=== PATIENT | male | born 1975 | race Caucasian/White ===

== ENCOUNTER 2016-09-06 03:34 | Inpatient (IN) | payer OTHER ==
[2016-09-06] VITALS (38 sets, daily range): BP systolic 116–163; BP diastolic 59–104
[~2016-09-06] VITALS: Ht 177.8 cm; Wt 81.6 kg
--- NOTE | ~2016-09-06 | P ---
[facility] [place] [address] PROCEDURE REPORT Name: LOIS SHERIDAN Room #: 241-P [facility] IN .Bryce#: [id number] Admission: 09/06/16 Attend Phys: Eulalio Amaya MD Discharge: 09/08/16 Date of : 73 Report #: [id number] THIS REPORT FOR: //name// CC: NILESH physician/PCP Eulalio Amaya DATE OF SERVICE: 09/08/2016 UPPER ENDOSCOPY REPORT BRIEF HISTORY: The patient is a 41-year-old male with alcohol abuse, nausea, vomiting, hematemesis, epigastric pain and odynophagia. PREOPERATIVE DIAGNOSIS: Upper gastrointestinal bleed. POSTOPERATIVE DIAGNOSES: 1. Severe, grade D esophagitis. 2. Antral gastritis, erythematous, moderate. 3. Patchy bulboduodenitis without ulceration. MEDICATIONS: Deep sedation with propofol per anesthesia. SPECIMEN: Biopsies of gastritis. ESTIMATED BLOOD LOSS: 3 mL. PROCEDURE: EGD with biopsy. FINDINGS: Prior to propofol sedation, procedure of upper endoscopy discussed with the patient, all potential risks and its complications. She indicates she understands and desires to proceed. DESCRIPTION OF PROCEDURE: With the patient in left lateral decubitus position, the Fuji video endoscope was inserted in the cervical esophagus under direct vision without difficulty. Examination of this organ through its entire length revealed normal esophageal mucosa in the proximal esophagus; however, in the mid and distal esophagus there was severe grade D erosive esophagitis, blood or bleeding was not seen. The patient has history of alcohol abuse, but varices were not seen today. A hiatus hernia was not seen. No strictures or masses were seen. He has had vomiting and there is esophagitis, but I do not see an obvious may be present and not visible due to the esophagitis. Scope was advanced in the stomach, which was examined on end view as well as retroflexed views. There was patchy erythema to moderate degree in the antrum, however the mucosa was intact. No ulcers or erosions were seen. Upon retroflexion, no mass lesions were seen. Biopsies obtained of the gastritis. The pylorus, duodenal bulb and postbulbar sweep were inspected. There was moderate patchy duodenitis [facility] [address] [place] [address] PROCEDURE REPORT Name: TERESA SHERIDANN [place] Room #: 241-P [facility] IN [facility].#: [id number] Admission: 09/06/16 Attend Phys: Eulalio Amaya MD Discharge: 09/08/16 Date of : 73 Report #: [id number] with mostly erythema, but no ulcers or erosions were seen and the duodenal mucosa was intact. The duodenal sweep down the third portion was normal. At that point, the scope was slowly withdrawn and careful circumferential views confirmed the above findings. The patient tolerated the procedure well. DISPOSITION: The patient with hematemesis, odynophagia and epigastric pain. His pain symptoms were likely related to esophagitis. An ultrasound of the abdomen earlier today, report is not yet available. We will follow up on biopsies. Place the patient on proton pump inhibitor and Carafate suspension. He should have a repeat endoscopy in about 8 weeks to confirm healing and to make sure he does not develop Masterson's with severe esophagitis. In addition, cessation of alcohol is absolutely for this patient. Again, no varices seen. <ELECTRONICALLY SIGNED> By: Goyo Alvarez MD 09/10/16 1225 [id number] [id number] Goyo Alvarez MD /nt
--- NOTE | ~2016-09-06 | S ---
[facility] [place] [address] SURGICAL PATH RPT PROCEDURE Name: LOIS SHERIDAN Room #: 241-P [facility] IN M.R.#: [id number] Admission: 09/06/16 Date of : 73 Discharge: 09/08/16 Report #: [id number] Path Case #: [id number] PATHOLOGY REPORT COLLECTION DATE: 09/08/2016 RECEIVED DATE: 09/08/2016 SUBMITTING PHYS: Dr. Goyo Alvarez OTHER PHYS: Dr. Eulalio Amaya SPECIMEN(S) RECEIVED: A.Gastric bx * * * * * * * * * * * * FINAL DIAGNOSIS: "Gastric bx", biopsy: - Gastric mucosa with reactive/regenerative changes, mild chronic inflammation and focal necroinflammatory debris consistent with ulcer/erosion; no dysplasia seen. - Negative H. pylori immunohistochemical stain (block A1); control reacted appropriately. (CLW:all; d/t: 09/09/2016) PATHOLOGIST: Meera Franklin M.D. REPORT ELECTRONICALLY SIGNED BY: Meera Franklin M.D. DATE/TIME: 09/09/2016 16:34 * * * * * * * * * * * * GROSS PATHOLOGY: Received in formalin labeled "Lois Sheridan and gastric," are 3 segments of carr soft tissue measuring 1.0 x 0.2 x 0.2 cm in aggregate dimensions and ranging from 0.2 to 0.5 cm in maximum dimension. The specimen is submitted entirely in cassette A1. (TTL; 09/08/2016) CLINICAL HISTORY: Gastritis INITIAL CPT CODE(S): A; 85962, 25350 Professional services performed by [facility] at [facility] [address], [place] [address] Technical services performed by [facility] at [address] [place] [id number]. [facility] [address] [place] [address] SURGICAL PATH RPT PROCEDURE Name: LOIS SHERIDAN Room #: 241-P [facility] IN M.R.#: [id number] Admission: 09/06/16 Date of : 73 Discharge: 09/08/16 Report #: [id number] Path Case #: [id number] [facility] [address] [address] PHONE: [phone] DIRECTOR: Cristhian Robles M.D. * * * END OF REPORT * * *
--- NOTE | ~2016-09-06 | HC ---
[facility] [place] [address] CONSULTATION Name: LOIS SHERIDAN Room #: 241-P [facility] IN [place]#: [id number] Admission: 09/06/16 Attend Phys: Eulalio Amaya MD Discharge: 09/08/16 Date of : 73 Report #: [id number] THIS REPORT FOR: //name// CC: NILESH physician/PCP Eulalio Amaya DATE OF SERVICE: 09/06/2016 HISTORY OF PRESENT ILLNESS: This is a 41-year-old male who admitted to the hospital. He is known to be a severe alcoholic. He has been having a long-standing history of severe abuse. We had seen him in the past 2 years ago and unfortunately he is not having significant sobriety to speak of. He has had best several months here and there. His family is very concerned about him. The patient tends to minimize what he needs. The patient states he needs outpatient rehab, though he just left from inpatient rehab 45 days ago. The patient was diagnosed with bipolar type 2 history. He says his mood is fine at this point. Anxiety is all right. He denies any suicidal or homicidal ideation or delusions. His demeanor has been pleasant and calm in the hospital, wants to get detoxed, he apparently was trying to self-detox at home. PAST PSYCHIATRIC HISTORY: Bipolar disorder as well as of course history of alcohol dependence. PAST MEDICAL HISTORY: Hypertension and GERD. LABORATORY DATA: Laboratories reviewed. He has a little potassium. Alcohol 252. On admission, hemoglobin 18.2 and platelets 147,000. FAMILY PSYCHIATRIC HISTORY: The patient denies. SOCIAL HISTORY: The patient again has had difficulty struggling with functioning due to his severe alcoholism. Family said he has had numerous attempts at detox that are failed. Denies substance abuse. MENTAL STATUS EXAMINATION: The patient has a flushed appearance. His affect is normal in appearance. He is not agitated. He has only a mild tremor. Thought process linear. Thought content, no suicidal or homicidal ideations. No delusions or thought disturbances. Insight and judgment are fair. IMPRESSION: AXIS I: 1. Bipolar type 2 disorder. 2. Alcohol dependence. AXIS II: Deferred. [facility] [address] [place] [address] CONSULTATION Name: TERESA SHERIDANN [place] Room #: 241-P [facility] IN [facility]#: [id number] Admission: 09/06/16 Attend Phys: Eulalio Amaya MD Discharge: 09/08/16 Date of : 73 Report #: [id number] AXIS III: As above. AXIS IV: Moderate. AXIS V: Global assessment of functioning currently 50%. PLAN: I had completed the detox as you are doing. We will start low dose Lamictal and resume the low dose Neurontin. I would not resume his old home dose of Lamictal and I would hold off on naltrexone, which he said he was also warned until his own physician resumes the naltrexone. I also would not resume Xanax or Ativan and not give him any prescriptions for these on discharge. I do not believe he can manage those. He can be discharged once he is completely detoxed. Hopefully, case management can get him into inpatient rehab at [facility]. He has a very positive outlook toward that place, but right now, he is saying he will do more outpatient. He really probably would benefit more from an inpatient setting. This was our recommendation. Thank you for the consultation. <ELECTRONICALLY SIGNED> By: Alverto Thorpe MD 09/09/16 [id number] Eloy Kimble MD /nt
[~2016-09-06 03:34] MED LIST: ALEVE220 M1 PO; ALPRAZOLAM1 MG PO; ATENOLOL 50 MG50 M1 PO; ATIVAN1 MG PO; BUSPAR 5 MG TABL5 M1 PO; CLONIDINE HCL0.2 M2 PO; CLONIDINE0.1 PO; FAMOTIDINE40 MG PO; LAMICTAL100 MG PO; LORAZEPAM 1 MG T1 M1 PO; MUCINEX600 MG PO; MULTI-VITAMIN1 EAC5 PO; ONDANSETRON HCL4 M2 PO; PEPCID20 MG PO; PHENERGAN 25 MG25 M1 PO; POTASSIUM20 PO; PRENATAL MULTI1 EAC2 PO; TENORMIN50 MG PO; TRAZODONE 150150 M1 PO; TRAZODONE HCL100 MG PO; WELLBUTRIN 100100 MG PO; ZYPREXA 5 MG TAB5 M2 PO
[2016-09-06 04:08] LABS: HEMATOCRIT 54.7 % (42.0-52.0); HEMOGLOBIN 18.2 gm/dL (14.0-18.0); MCH 29.2 pg (26.0-34.0); MCHC 33.2 % (28.0-37.0); MCV 87.8 fL (80.0-100.0); PLATELET COUNT 147 thou/uL (150-400); RBC 6.23 mil/uL (4.50-6.00); RDW 13.7 % (10.5-14.5); WBC 20.6 thou/uL (4.0-11.0)
[2016-09-06 04:09] LABS: MANUAL DIFF YES
[2016-09-06 04:20] LABS: CREATININE 1.2 mg/dL (0.6-1.3); MAGNESIUM 1.3 mg/dL (1.8-2.4); POTASSIUM 3.1 mmol/L (3.5-5.1)
[2016-09-06 04:34] LABS: ABSOLUTE NEUTROPHILS 16.3 thou/uL (1.4-8.2); ATYPICAL LYMPHS 1 %; TOTAL CELL COUNT 100
[2016-09-06 12:46] LABS: INR 1.1; MAGNESIUM 2.1 mg/dL (1.8-2.4); PROTIME 11.5 Seconds (9.3-11.4)
[2016-09-06] MEDS ORDERED: LAMICTAL100 MG PO (12:46)
[2016-09-06] MEDS ORDERED: NEURONTIN 300300 M1 PO (12:46)
[2016-09-06 12:50] LABS: POTASSIUM 2.9 mmol/L (3.5-5.1)
[2016-09-06 12:52] LABS: PHOSPHORUS 2.1 mg/dL (2.5-4.9)
[2016-09-06] MEDS ORDERED: REVIA 50 MG TAB50 M1 PO (13:05)
[2016-09-06] MEDS ORDERED: TRAZODONE HCL100 MG PO (13:29)
[2016-09-06] MEDS ORDERED: LAMICTAL200 MG PO (13:31)
[2016-09-06] MEDS ORDERED: GABAPENTIN 100100 MG PO (13:31)
[2016-09-06] MEDS ORDERED: NALTREXONE HCL50 MG PO (13:32)
[2016-09-06] MEDS ORDERED: ZOLOFT100 MG PO (13:33)
[2016-09-06] MEDS ORDERED: HYDROXYZINE HCL25 M2 PO (13:36)
[2016-09-06 17:50] LABS: URINE BILIRUBIN NEGATIVE (Negative); URINE BLOOD NEGATIVE (Negative); URINE COLOR YELLOW; URINE GLUCOSE-RANDOM* NEGATIVE (Negative); URINE KETONES NEGATIVE (Negative); URINE LEUKOCYTES-REFLEX NEGATIVE (Negative); URINE PROTEIN (DIPSTICK) TRACE (Negative); URINE SPECIFIC GRAVITY 1.015 (1.003-1.035)
[2016-09-06 18:10] LABS: FREE T4 1.17 ng/dL (0.82-1.77)
[2016-09-06 21:10] LABS: FOLIC ACID > 19.9 ng/mL (>3.0)
[2016-09-07] VITALS (23 sets, daily range): BP systolic 114–138; BP diastolic 65–90
[2016-09-07 03:35] LABS: AMP/METHAMP Negative (Negative); BARBITURATES POSITIVE (Negative); BENZODIAZEPINES POSITIVE (Negative); COCAINE Negative (Negative); METHADONE Negative (Negative); OPIATES Negative (Negative); PCP Negative (Negative); THC Negative (Negative)
[2016-09-07 05:07] LABS: RDW 13.1 % (10.5-14.5); WBC 9.3 thou/uL (4.0-11.0)
[2016-09-07 05:10] LABS: HEMATOCRIT 39.6 % (42.0-52.0); MCHC 34.4 % (28.0-37.0); MCV 87.4 fL (80.0-100.0); PLATELET COUNT 75 thou/uL (150-400); RBC 4.53 mil/uL (4.50-6.00)
[2016-09-07 05:17] LABS: HEMOGLOBIN 13.6 gm/dL (14.0-18.0); MANUAL DIFF YES
[2016-09-07 05:18] LABS: POLYS 70.1 % (36.0-66.0)
[2016-09-07 05:19] LABS: ABSOLUTE NEUTROPHILS 6.5 thou/uL (1.4-8.2); BASOPHILS 0.4 % (0.0-2.0); EOSINOPHILS 0.9 % (0.0-3.0); MONOCYTES 7.6 % (1.0-8.0)
[2016-09-07 05:30] LABS: ALBUMIN 2.9 g/dL (3.4-5.0); CALCIUM 7.9 mg/dL (8.5-10.1); CREATININE 0.8 mg/dL (0.6-1.3); MAGNESIUM 1.7 mg/dL (1.8-2.4); POTASSIUM 3.2 mmol/L (3.5-5.1); TOTAL BILIRUBIN 3.5 mg/dL (<0.1-1.0); TOTAL PROTEIN 5.4 g/dL (6.4-8.2)
[2016-09-07 14:48] LABS: PROTIME 10.3 Seconds (9.3-11.4)
[2016-09-07 21:10] LABS: % SATURATION 35 % (15-55); IRON 95 ug/dL (38-169); TIBC 275 ug/dL (250-450); UIBC 180 ug/dL (111-343)
[2016-09-07 22:06] LABS: FERRITIN 833 ng/mL (30-400); HEPATITIS C VIRUS AB <0.1 (0.0-0.9); IgG 632 mg/dL (700-1600)
[2016-09-08] VITALS (57 sets, daily range): BP systolic 84–146; BP diastolic 56–107
[2016-09-08 04:22] LABS: HEMATOCRIT 41.4 % (42.0-52.0); HEMOGLOBIN 13.8 gm/dL (14.0-18.0); MCH 29.6 pg (26.0-34.0); MCHC 33.3 % (28.0-37.0); MCV 88.8 fL (80.0-100.0); RBC 4.67 mil/uL (4.50-6.00); RDW 12.9 % (10.5-14.5)
[2016-09-08 04:37] LABS: ALBUMIN 3.2 g/dL (3.4-5.0); DIRECT BILIRUBIN 0.3 mg/dL (<0.1-0.3); MAGNESIUM 1.5 mg/dL (1.8-2.4); TOTAL BILIRUBIN 2.1 mg/dL (<0.1-1.0)
[2016-09-08 12:08] LABS: CERULOPLASMIN 18.7 mg/dL (16.0-31.0)
[2016-09-08] MEDS ORDERED: PROTONIX 440 MG/VIA2 PO (14:28)
[2016-09-08] MEDS ORDERED: VITAMIN B-1100 M2 PO (14:28)
[2016-09-08] MEDS ORDERED: CARAFATE 1 GM TA1 G1 PO (14:37)
== END 2016-09-08 15:47 | disposition home or self-care (01) | DRG 897 ==
LOC: ER 03:34 → EROBS 04:48 → ICU 04:48
PROVIDERS: Emergency Medicine; Nurse Practitioner; Nurse Practitioner Adult Health
PROC: 0DB68ZX Excision of Stomach, Via Natural or Artificial Opening Endoscopic, Diagnostic (ICD-10-PCS; principal; 2016-09-08)
PROC: HZ2ZZZZ Detoxification Services for Substance Abuse Treatment (ICD-10-PCS; principal; 2016-09-08)
DX: F10.239 Alcohol dependence with withdrawal, unspecified (principal); F10.229 Alcohol dependence with intoxication, unspecified; K21.0 Gastro-esophageal reflux disease with esophagitis; I10 Essential (primary) hypertension; F31.9 Bipolar disorder, unspecified; E87.6 Hypokalemia; F41.9 Anxiety disorder, unspecified; Y90.9 Presence of alcohol in blood, level not specified; D72.829 Elevated white blood cell count, unspecified; K29.70 Gastritis, unspecified, without bleeding; K29.80 Duodenitis without bleeding; F12.90 Cannabis use, unspecified, uncomplicated; R79.89 Other specified abnormal findings of blood chemistry; D69.6 Thrombocytopenia, unspecified; Z79.899 Other long term (current) drug therapy; Z98.818 Other dental procedure status; Z87.891 Personal history of nicotine dependence
CPT/HCPCS: 10078; 62110; 62900